=== PATIENT | female | born 1975 | race Caucasian/White ===

== ENCOUNTER 2018-05-09 11:18 | Outpatient (RCR) | payer OTHER | END 2018-05-28 | LOC: M OT 11:18 | DX: Z51.89 Encounter for other specified aftercare (principal); M25.631 Stiffness of right wrist, not elsewhere classified | CPT/HCPCS: 97110 ==

== ENCOUNTER 2018-05-30 08:11 | Outpatient (RCR) | payer OTHER | END 2018-06-28 | LOC: M OT 08:11 | DX: S63.501A Unspecified sprain of right wrist, initial encounter (principal) | CPT/HCPCS: 97110 ==

== ENCOUNTER → 2018-11-24 | Outpatient (REF) | payer OTHER ==
[~2018-11-24] MED LIST: PRIL40CA PO
[2018-11-24 11:21] LABS: HEMATOCRIT 40.4 % (36.0-47.0); HEMOGLOBIN 13.9 g/dl (12.0-15.5); MEAN CORPUSCULAR HEMOGLOBIN 30.6 pg (27.0-33.0); MEAN CORPUSCULAR HGB CONC 34.4 g/dl (32.0-36.5); PLATELET COUNT, AUTOMATED 320 10^3/uL (150-450); RED BLOOD COUNT 4.54 10^6/uL (4.00-5.40); WHITE BLOOD COUNT 8.9 10^3/uL (4.0-10.0)
[2018-11-24 12:11] LABS: ALBUMIN 3.8 GM/DL (3.2-5.2); ALT/SGPT 22 U/L (12-78); BILIRUBIN,TOTAL 0.9 MG/DL (0.2-1.0); BLOOD UREA NITROGEN 11 MG/DL (7-18); CALCIUM LEVEL 9.2 MG/DL (8.5-10.1); CARBON DIOXIDE LEVEL 27 MEQ/L (21-32); CHLORIDE LEVEL 105 MEQ/L (98-107); CHOLESTEROL LEVEL 162 MG/DL (<200); CREATININE FOR GFR 0.89 MG/DL (0.55-1.30); GLOMERULAR FILTRATION RATE > 60.0 (>58); GLUCOSE, FASTING 89 MG/DL (70-100); HDL CHOLESTEROL 54 MG/DL (>40); LDL CHOLESTEROL 89 MG/DL (<100); NON-HDL-C 108 MG/DL; POTASSIUM SERUM 4.8 MEQ/L (3.5-5.1); SODIUM LEVEL 140 MEQ/L (136-145); TOTAL 25(OH) VITAMIN D 22.1 NG/ML (30.0-100.0); TRIGLYCERIDES LEVEL 97 MG/DL (<150)
== END ==
LOC: M SFHCCLAY 09:15
PROVIDERS: ATTEND Nurse Practitioner Family
DX: Z00.00 Encounter for general adult medical examination without abnormal findings (principal); K21.9 Gastro-esophageal reflux disease without esophagitis; Z13.6 Encounter for screening for cardiovascular disorders; E55.9 Vitamin D deficiency, unspecified

== ENCOUNTER → 2019-02-21 | Outpatient (REF) | payer OTHER ==
[2019-02-21 17:01] LABS: ALBUMIN 3.6 GM/DL (3.2-5.2); ALT/SGPT 24 U/L (12-78); BILIRUBIN,TOTAL 0.6 MG/DL (0.2-1.0); BLOOD UREA NITROGEN 12 MG/DL (7-18); CARBON DIOXIDE LEVEL 29 MEQ/L (21-32); CHLORIDE LEVEL 107 MEQ/L (98-107); CREATININE FOR GFR 0.85 MG/DL (0.55-1.30); GLOMERULAR FILTRATION RATE > 60.0 (>58); GLUCOSE, FASTING 96 MG/DL (70-100); HCG, SERUM QUANTITATIVE < 1.0 MIU/ML; POTASSIUM SERUM 4.5 MEQ/L (3.5-5.1); SODIUM LEVEL 141 MEQ/L (136-145); TOTAL PROTEIN 6.7 GM/DL (6.4-8.2)
[2019-02-21 17:14] LABS: BASO # 0.1 10^3/uL (0.0-0.2); BASO % 0.6 % (0.0-1.0); EOS # 0.1 10^3/uL (0.0-0.50); EOS % 1.5 % (0.0-3.0); HEMATOCRIT 39.3 % (36.0-47.0); HEMOGLOBIN 13.4 g/dl (12.0-15.5); LYMPH # 1.9 10^3/uL (1.5-4.5); LYMPH % 22.9 % (24.0-44.0); MEAN CORPUSCULAR HEMOGLOBIN 30.9 pg (27.0-33.0); MEAN CORPUSCULAR HGB CONC 34.1 g/dl (32.0-36.5); MEAN CORPUSCULAR VOLUME 90.8 fl (80.0-96.0); MONO # 0.5 10^3/uL (0.0-0.8); MONO % 5.7 % (0.0-5.0); NEUTROPHILS # 5.9 10^3/uL (1.8-7.7); NEUTROPHILS % 68.9 % (36.0-66.0); PLATELET COUNT, AUTOMATED 298 10^3/uL (150-450); RED BLOOD COUNT 4.33 10^6/uL (4.00-5.40); WHITE BLOOD COUNT 8.5 10^3/uL (4.0-10.0)
[2019-02-21 17:47] LABS: HCG, SERUM QUALITATIVE NEGATIVE (NEGATIVE); MONO SCRN NEGATIVE (NEGATIVE)
== END ==
LOC: M SFHCCLAY 12:25
PROVIDERS: ATTEND Nurse Practitioner Family
DX: R53.83 Other fatigue (principal); N91.2 Amenorrhea, unspecified

== ENCOUNTER → 2021-03-12 | Outpatient (REF) | payer OTHER | LOC: M SFHCWAGY 13:09 | PROVIDERS: ATTEND Nurse Practitioner Women's Health | DX: Z12.4 Encounter for screening for malignant neoplasm of cervix (principal) ==

== ENCOUNTER → 2021-04-02 | Outpatient (CLI) | payer OTHER ==
[2021-04-02 14:40] LABS: HEMOGLOBIN 14.2 g/dl (12.0-15.5); MEAN CORPUSCULAR HEMOGLOBIN 30.3 pg (27.0-33.0); MEAN CORPUSCULAR HGB CONC 33.8 g/dl (32.0-36.5); MEAN CORPUSCULAR VOLUME 89.7 fl (80.0-96.0); PLATELET COUNT, AUTOMATED 311 10^3/uL (150-450); RED BLOOD COUNT 4.68 10^6/uL (4.00-5.40); WHITE BLOOD COUNT 7.2 10^3/uL (4.0-10.0)
[2021-04-02 15:08] LABS: ALT/SGPT 28 U/L (12-78); BILIRUBIN,TOTAL 1.1 MG/DL (0.2-1.0); BLOOD UREA NITROGEN 13 MG/DL (7-18); CALCIUM LEVEL 9.1 MG/DL (8.5-10.1); CARBON DIOXIDE LEVEL 30 MEQ/L (21-32); CHLORIDE LEVEL 107 MEQ/L (98-107); CHOLESTEROL LEVEL 162 MG/DL (<200); CHOLESTEROL RISK RATIO 2.892 (<5); CREATININE FOR GFR 0.88 MG/DL (0.55-1.30); GLOMERULAR FILTRATION RATE > 60.0 (>58); GLUCOSE, FASTING 89 MG/DL (70-100); HDL CHOLESTEROL 56 MG/DL (>40); LDL CHOLESTEROL 79 MG/DL (<100); NON-HDL-C 106 MG/DL; POTASSIUM SERUM 4.7 MEQ/L (3.5-5.1); SODIUM LEVEL 141 MEQ/L (136-145); TOTAL PROTEIN 7.1 GM/DL (6.4-8.2); TRIGLYCERIDES LEVEL 133 MG/DL (<150)
[2021-04-02 15:20] LABS: TOTAL 25(OH) VITAMIN D 23.3 NG/ML (30.0-100.0)
== END ==
LOC: M WUC 10:25
PROVIDERS: ATTEND Nurse Practitioner Family
DX: K21.9 Gastro-esophageal reflux disease without esophagitis (principal); E55.9 Vitamin D deficiency, unspecified; Z13.6 Encounter for screening for cardiovascular disorders

== ENCOUNTER → 2021-05-29 | Outpatient (CLI) | payer OTHER ==
--- NOTE | 2021-05-29 10:41 | PFTRPT ---
Site: [facility], [address] [place], [place], [address] ID: [id number] Name: ERIC ARIAS Visit Date: 05/29/2021 Second ID: [id number] Referring Doctor: Carey Robledo NP Reviewing Doctor: Montana Jones MD Medical Billing Representative: Rebeca Lee RRT Age: 45 : 1975 Sex: Female Race: Height: 62.00 Inches Weight: 170.00 Lbs BSA: 1.78 Order IDs: [id number] Requested Test(s): <RESP-PFT.PFT B/A> Diagnosis: J45.909 of albuterol for post bronchodilator. Review Status: Not Reviewed Pre-Bronch Post-Bronch Pred Actual %Pred Actual %Chng SPIROMETRY FVC (L) 3.39 2.64 77 2.76 4 FEV1 (L) 2.73 2.23 81 2.32 4 FEV1/FVC (%) 81 84 104 84 FEF 25% (L/sec) 5.14 4.31 83 5.20 20 FEF 50% (L/sec) 4.07 3.33 81 3.36 FEF 75% (L/sec) 1.56 1.09 69 1.51 38 FEF 25-75% (L/sec) 2.85 2.68 94 2.96 10 FEF Max (L/sec) 6.58 5.01 76 5.73 14 FIVC (L) 2.29 2.39 4 FIF 50% (L/sec) 3.79 2.23 58 1.53 -31 FIF Max (L/sec) 2.71 2.11 -22 MVV (L/min) 96 67 70 Expiratory Time (sec) 6.91 6.73 -2 Back Extrap Vol (L) 0.11 0.07 -34 Time To FEFmax (sec) 0.109 0.079 -27 LUNG VOLUMES SVC (L) 3.17 2.58 81 IC (L) 2.12 2.19 103 ERV (L) 1.05 0.39 36 TGV (L) 2.63 7.64 290 RV (Pleth) (L) 1.58 7.26 459 TLC (Pleth) (L) 4.75 9.83 207 RV/TLC (Pleth) (%) 33 74 223 DIFFUSION DLCOunc (ml/min/mmHg) 22.50 14.46 64 DL/VA (ml/min/mmHg/L) 4.74 5.10 107 VA (L) 4.75 2.83 59 BHT (sec) 11.33 IVC (L) 1.28 TLC (SB) (L) 2.98 AIRWAYS RESISTANCE Raw (cmH2O/L/s) 1.86 1.41 75 Gaw (L/s/cmH2O) 1.03 0.84 81 sRaw (cmH2O*s) 4.76 4.33 90 sGaw (1/cmH2O*s) 0.20 0.25 124
== END ==
LOC: M CARPUL 10:05
PROVIDERS: ATTEND Nurse Practitioner Family
DX: J45.909 Unspecified asthma, uncomplicated (principal)

== ENCOUNTER → 2021-06-15 | Outpatient (CLI) | payer OTHER ==
--- NOTE | 2021-06-16 10:34 | REPMRS ---
Patient History The patient states she had a clinical breast exam in 02/2021. No known family history of cancer. Benign excisional biopsy of both breasts, August 29, 2012. No Hormone Replacement Therapy Tomosynthesis is performed. Volpara breast density is b. [facility] lifetime risk of breast cancer 8.8%. Patient states no breast complaints today. Patient has signed MRS History Sheet. Digital Woman Screen Mammo: June 15, 2021 - Exam #: [id number] Bilateral CC and MLO view(s) were taken. Technologist: Stephanie Morris Machine Operator Slitter Technician FINDINGS: There are scattered fibroglandular densities. There has been no change in the appearance of the mammogram from the prior studies. There is a mild amount of residual fibroglandular tissue which is fairly symmetric. There is no interval development of dominant mass, architectural distortion, or clustered microcalcification suggestive of malignancy. Assessment: BI-RADS/ACR category 1 mammogram. Negative Mammogram. Recommendation Routine screening mammogram in 1 year (for women over age 40). This mammogram was interpreted with the aid of an FDA-approved computer-aided dectection system. Electronically Signed By: Jose A Hoyos MD 06/16/21 [id number]
== END ==
LOC: M WHC 14:54
PROVIDERS: ATTEND Nurse Practitioner Women's Health
DX: Z12.31 Encounter for screening mammogram for malignant neoplasm of breast (principal)

== ENCOUNTER → 2021-07-03 | Outpatient (REF) | payer OTHER | LOC: M LAB REF 11:00 | PROVIDERS: ATTEND Physician Assistant Medical | DX: R19.8 Other specified symptoms and signs involving the digestive system and abdomen (principal) ==

== ENCOUNTER → 2021-07-19 | Outpatient (REF) | payer OTHER ==
[2021-07-19 13:36] LABS: APPEARANCE, URINE CLEAR (CLEAR); BACTERIA, URINE AUTO NEGATIVE (NEGATIVE); BILIRUBIN, URINE AUTO NEGATIVE (NEGATIVE); BLOOD, URINE BLOOD 2+ (NEGATIVE); COLOR, URINE STRAW (YELLOW); GLUCOSE, URINE (UA) AUTO NEGATIVE (NEGATIVE); KETONE, URINE AUTO NEGATIVE (NEGATIVE); LEUKOCYTE ESTERASE, URINE AUTO NEGATIVE (NEGATIVE); NITRITE, URINE AUTO NEGATIVE (NEGATIVE); PROTEIN, URINE AUTO NEGATIVE (NEGATIVE); RBC, URINE AUTO 1 /HPF (0-3); SPECIFIC GRAVITY URINE AUTO 1.002 (1.002-1.035); SQUAMOUS EPITHELIAL CELL UR AU 0 /HPF (0-6); URINE PREG TEST NEGATIVE (NEGATIVE); UROBILINOGEN, URINE AUTO 0.2 mg/dL (0.0-2.0); WBC, URINE AUTO 0 /HPF (0-3)
[2021-07-19 15:19] LABS: GC DNA AMPLIFICATION NEGATIVE (NEGATIVE)
== END ==
LOC: M LAB REF 13:24
PROVIDERS: ATTEND Physician Assistant Medical
DX: R30.0 Dysuria (principal)

== ENCOUNTER → 2021-07-19 | Outpatient (CLI) | payer OTHER ==
[2021-07-19 13:38] LABS: HEMOGLOBIN A1c 5.1 %
[2021-07-19 13:48] LABS: FREE T4 0.94 NG/DL (0.76-1.46); THYROID STIMULATING HORMONE 2.68 uIU/ML (0.358-3.740)
== END ==
LOC: M LAB 12:40
PROVIDERS: ATTEND Physician Assistant Medical
DX: K31.84 Gastroparesis (principal)

== ENCOUNTER → 2021-08-05 | Outpatient (CLI) | payer OTHER ==
--- NOTE | 2021-08-05 10:17 | REP ---
INDICATION: POSTCOITAL BLEEDING COMPARISON: None. TECHNIQUE: Transabdominal pelvic ultrasound followed by transvaginal examination for better evaluation of the endometrium and adnexa with color Doppler evaluation of the ovaries. FINDINGS: Bladder is under distended and currently measures 6.5 x 4.3 x 3.5 cm without obvious abnormality. Heterogeneous anteverted uterus measures 9.1 x 5.1 x 6.5 cm. The endometrial complex measures 12 mm thickness. Anterior submucosal fibroid measures 1.3 x 0.8 x 1.5 cm and anterior subserosal fibroid measures 1.3 x 0.9 x 1.1 cm. Incidental 4 mm nabothian cyst in the cervix noted. Bilateral ovaries are normal in appearance and vascularity without evidence for torsion. Right ovary measures 2.8 x 1.7 x 1.7 cm; R I = 0.55. Left ovary measures 2.1 x 1.4 x 1.6 cm; R I = 0.63. Small amount of free fluid from the right adnexa to the posterior cul-de-sac likely physiologic. IMPRESSION: Heterogeneous uterus with 2 fibroids as mentioned above. <Electronically signed by Brice Peng > 08/05/21 1011
== END ==
LOC: M WHC 08:18
PROVIDERS: ATTEND Nurse Practitioner Family
DX: N93.0 Postcoital and contact bleeding (principal)

== ENCOUNTER → 2021-09-10 | Outpatient (CLI) | payer OTHER ==
[2021-09-10 15:09] LABS: HIV 1&2 SCREEN CENTAUR NEGATIVE (NEGATIVE)
== END ==
LOC: M PLALAB 10:52
PROVIDERS: ATTEND Nurse Practitioner Women's Health
DX: Z11.3 Encounter for screening for infections with a predominantly sexual mode of transmission (principal)

== ENCOUNTER → 2021-10-05 | Outpatient (CLI) | payer OTHER ==
[~2021-10-05] MED LIST changes: +ALEV220T22 PO; +OSEL75CA PO
== END ==
LOC: M CARPUL 13:06
PROVIDERS: ATTEND Nurse Practitioner Family
DX: K21.9 Gastro-esophageal reflux disease without esophagitis (principal)

== ENCOUNTER 2021-10-27 11:58 | Day surgery (SDC) | payer OTHER ==
[~2021-10-27] VITALS: Ht 149.9 cm; Wt 73.9 kg
[~2021-10-27 11:58] MED LIST changes: +NS 1,000 ML IV ONE
[2021-10-27] MEDS ORDERED: LIDOCAINE 2% 100MG/5ML SDV (FOR ANES.) As Ordered ONE (13:01)
[2021-10-27] MEDS ORDERED: fentaNYL 100 MCG/2 ML INJECTION As Ordered ONE (13:02)
[2021-10-27] MEDS ORDERED: propofoL 500 MG/50 ML VIAL As Ordered ONE (13:02)
[2021-10-27 14:57] VITALS: BP 126/79
== END 2021-10-27 14:58 | disposition home or self-care (01) ==
LOC: M OPP 11:58
PROVIDERS: ATTEND Internal Medicine Gastroenterology
DX: Z12.11 Encounter for screening for malignant neoplasm of colon (principal); Z86.010 Personal history of colon polyps; D12.0 Benign neoplasm of cecum; K64.8 Other hemorrhoids; K31.84 Gastroparesis; R10.9 Unspecified abdominal pain; R12 Heartburn; Z88.1 Allergy status to other antibiotic agents; Z88.8 Allergy status to other drugs, medicaments and biological substances; Z87.19 Personal history of other diseases of the digestive system
CPT/HCPCS: 43235; 45380; 45385; 88305; J3010

== ENCOUNTER 2023-04-05 05:25 | Emergency (ER) | payer OTHER ==
[~2023-04-05] VITALS: Ht 152.4 cm; Wt 89.1 kg
[~2023-04-05 05:25] MED LIST changes: -NS 1,000 ML IV ONE
[2023-04-05] MEDS ORDERED: KETOROLAC 30 MG/ML 1ML VIAL IM ONE (10:40)
[2023-04-05 11:18] LABS: BASO # 0.1 10^3/uL (0.0-0.2); BASO % 0.3 % (0.0-1.0); EOS # 0.1 10^3/uL (0.0-0.5); EOS % 0.8 % (0.0-3.0); HEMATOCRIT 40.3 % (36.0-47.0); HEMOGLOBIN 13.8 g/dl (12.0-15.5); LYMPH # 2.8 10^3/uL (1.5-5.0); LYMPH % 17.6 % (24.0-44.0); MEAN CORPUSCULAR HEMOGLOBIN 30.5 pg (27.0-33.0); MEAN CORPUSCULAR HGB CONC 34.2 g/dl (32.0-36.5); MEAN CORPUSCULAR VOLUME 89.2 fl (80.0-96.0); MONO % 6.5 % (2.0-8.0); NEUTROPHILS # 11.8 10^3/uL (1.5-8.5); PLATELET COUNT, AUTOMATED 399 10^3/uL (150-450); RED BLOOD COUNT 4.52 10^6/uL (4.00-5.40)
[2023-04-05 11:38] LABS: URIC ACID 4.6 MG/DL (3.1-7.8)
[2023-04-05 12:45] LABS: C REACTIVE PROTEIN QUANTITATIV 6.8 MG/DL (<1.0)
[2023-04-05 13:19] LABS: ERYTHROCYTE SEDIMENTATION RATE 36 mm/hr (0-20)
[2023-04-05 16:20] VITALS: BP 146/85; TEMP 96.7; O2SAT 98
[2023-04-05 17:46] LABS: CRYSTALS, BODY FLUID NONE SEEN (NONE SEEN); SOURCE, BODY FLUID CRYSTALS LFT KNEE
== END 2023-04-05 16:21 | disposition home or self-care (01) ==
LOC: M ED 05:25
DX: M25.462 Effusion, left knee (principal); Z88.8 Allergy status to other drugs, medicaments and biological substances; Z91.048 Other nonmedicinal substance allergy status
CPT/HCPCS: 73564; 73700; 80047; 84550; 85025; 85652; 86140; 87070; 87205; 89060; 96372; 99283; J1885

== ENCOUNTER → 2023-10-07 | Outpatient (REF) | payer OTHER ==
[2023-10-07 18:47] LABS: BASO % 0.4 % (0.0-1.0); EOS # 0.3 10^3/uL (0.0-0.5); EOS % 3.9 % (0.0-3.0); HEMATOCRIT 44.1 % (36.0-47.0); HEMOGLOBIN 14.8 g/dl (12.0-15.5); LYMPH # 1.9 10^3/uL (1.5-5.0); LYMPH % 25.8 % (24.0-44.0); MEAN CORPUSCULAR HEMOGLOBIN 29.3 pg (27.0-33.0); MEAN CORPUSCULAR HGB CONC 33.6 g/dl (32.0-36.5); MEAN CORPUSCULAR VOLUME 87.3 fl (80.0-96.0); MONO # 0.7 10^3/uL (0.0-0.8); MONO % 8.8 % (2.0-8.0); NEUTROPHILS # 4.6 10^3/uL (1.5-8.5); NEUTROPHILS % 60.8 % (36.0-66.0); PLATELET COUNT, AUTOMATED 341 10^3/uL (150-450); RED BLOOD COUNT 5.05 10^6/uL (4.00-5.40); WHITE BLOOD COUNT 7.5 10^3/uL (4.0-10.0)
[2023-10-07 19:08] LABS: ALBUMIN 3.7 G/DL (3.2-5.2); ALKALINE PHOSPHATASE 129 U/L (46-116); ALT/SGPT 33 U/L (7.0-40); AST/SGOT 21 U/L (<34); BILIRUBIN,TOTAL 0.8 MG/DL (0.3-1.2); BLOOD UREA NITROGEN 12 MG/DL (9-23); CALCIUM LEVEL 9.9 MG/DL (8.5-10.1); CARBON DIOXIDE LEVEL 30 MMOL/L (20-31); CHLORIDE LEVEL 101 MMOL/L (98-107); CREATININE FOR GFR 0.93 MG/DL (0.55-1.30); GLOMERULAR FILTRATION RATE > 60.0 (>58); GLUCOSE, FASTING 87 MG/DL (60-100); POTASSIUM SERUM 5.6 MMOL/L (3.5-5.1); SODIUM LEVEL 136 MMOL/L (136-145); THYROID STIMULATING HORMONE 3.154 uIU/ML (0.55-4.78)
== END ==
LOC: M SFHCCLAY 09:23
PROVIDERS: ATTEND Physician Assistant
DX: H81.11 Benign paroxysmal vertigo, right ear (principal)

== ENCOUNTER → 2024-02-01 | Outpatient (REF) | payer OTHER ==
[2024-02-04 12:04] LABS: HPV APTIMA Not Detected (Not Detected)
== END ==
LOC: M SFHCWAGY 10:55
PROVIDERS: ATTEND Nurse Practitioner Family
DX: Z12.4 Encounter for screening for malignant neoplasm of cervix (principal); R87.610 Atypical squamous cells of undetermined significance on cytologic smear of cervix (ASC-US)

== ENCOUNTER → 2024-02-10 | Outpatient (CLI) | payer OTHER | LOC: M WHC 15:33 | PROVIDERS: ATTEND Nurse Practitioner Family | DX: Z12.31 Encounter for screening mammogram for malignant neoplasm of breast (principal) ==

== ENCOUNTER → 2024-05-28 | Outpatient (CLI) | payer OTHER ==
[~2024-05-28] MED LIST changes: +PROHANCE 279.3MG/ML 15ML VIAL ONE; +PROHANCE 279.3MG/ML 5ML VIAL ONE
== END ==
LOC: M PLAIMG 14:52
PROVIDERS: ATTEND Otolaryngology
DX: H93.12 Tinnitus, left ear (principal)
CPT/HCPCS: 70553; A9576

== ENCOUNTER → 2024-10-03 | Outpatient (REF) | payer OTHER ==
[~2024-10-03] MED LIST changes: -PROHANCE 279.3MG/ML 15ML VIAL ONE; -PROHANCE 279.3MG/ML 5ML VIAL ONE
[2024-10-03 18:51] LABS: FREE T4 0.96 NG/DL (0.89-1.76)
[2024-10-03 18:53] LABS: ALBUMIN 3.1 G/DL (3.2-5.2); ALKALINE PHOSPHATASE 82 U/L (35-104); ALT/SGPT 16 U/L (7.0-40); AST/SGOT 10 U/L (<34); BILIRUBIN,TOTAL 0.5 MG/DL (0.3-1.2); BLOOD UREA NITROGEN 15 MG/DL (9-23); CARBON DIOXIDE LEVEL 26 MMOL/L (20-31); CHLORIDE LEVEL 106 MMOL/L (98-107); CHOLESTEROL LEVEL 147 MG/DL (<200); CHOLESTEROL RISK RATIO 2.96 (<5); CREATININE FOR GFR 0.76 MG/DL (0.55-1.30); GLOMERULAR FILTRATION RATE > 60.0 (>58); GLUCOSE, FASTING 122 MG/DL (60-100); HDL CHOLESTEROL 49.5 MG/DL (>40); LDL CHOLESTEROL 66.9 MG/DL (<100); NON-HDL-C 97.5 MG/DL; POTASSIUM SERUM 4.6 MMOL/L (3.5-5.1); SODIUM LEVEL 141 MMOL/L (136-145); TRIGLYCERIDES LEVEL 153 MG/DL (<150)
[2024-10-03 19:05] LABS: BASO % 0.3 % (0.0-1.0); EOS # 0.3 10^3/uL (0.0-0.5); EOS % 3.1 % (0.0-3.0); HEMOGLOBIN 12.8 g/dl (12.0-15.5); LYMPH % 20.7 % (24.0-44.0); MEAN CORPUSCULAR HEMOGLOBIN 28.2 pg (27.0-33.0); MEAN CORPUSCULAR HGB CONC 32.8 g/dl (32.0-36.5); MEAN CORPUSCULAR VOLUME 85.9 fl (80.0-96.0); MONO # 0.4 10^3/uL (0.0-0.8); MONO % 4.5 % (2.0-8.0); PLATELET COUNT, AUTOMATED 405 10^3/uL (150-450); RED BLOOD COUNT 4.54 10^6/uL (4.00-5.40); WHITE BLOOD COUNT 9.8 10^3/uL (4.0-10.0)
[2024-10-03 19:13] LABS: HEMOGLOBIN A1c 5.7 % (4.0-6.0)
== END ==
LOC: M SFHCCLAY 11:10
PROVIDERS: ATTEND Nurse Practitioner Family
DX: Z00.00 Encounter for general adult medical examination without abnormal findings (principal); E55.9 Vitamin D deficiency, unspecified; K31.84 Gastroparesis; J45.909 Unspecified asthma, uncomplicated; E66.01 Morbid (severe) obesity due to excess calories; Z68.41 Body mass index [BMI] 40.0-44.9, adult; E66.813 Obesity, class 3

== ENCOUNTER 2024-10-16 13:28 | Emergency (ER) | payer OTHER ==
[~2024-10-16] VITALS: Ht 149.9 cm; Wt 94.9 kg
[2024-10-16] MEDS ORDERED: VENTAER (14:02)
[2024-10-16] MEDS ORDERED: ELINTAB (14:02)
[2024-10-16] MEDS ORDERED: ALBU8.5H (14:02)
[2024-10-16] MEDS ORDERED: OMEP40CA5 (14:02)
[2024-10-16] MEDS ORDERED: POLY510P14 (14:02)
[2024-10-16] MEDS ORDERED: DOCU100C16 (14:02)
[2024-10-16] MEDS ORDERED: AMOX875T2 PO (23:33)
[2024-10-16] MEDS: AUGMENTIN 875 MG TAB PO ONE (23:43)
[2024-10-16] MEDS: KETOROLAC 30 MG/ML 1ML VIAL IM ONE (23:44)
[2024-10-16 23:45] VITALS: BP 160/91; TEMP 97.8; O2SAT 98
== END 2024-10-16 23:49 | disposition home or self-care (01) ==
LOC: M ED 13:28
DX: J32.9 Chronic sinusitis, unspecified (principal); Z88.8 Allergy status to other drugs, medicaments and biological substances
CPT/HCPCS: 70450; 96372; 99284; J1885